=== PATIENT | male | born 2000 | race Caucasian/White ===

== ENCOUNTER 2019-12-22 23:53 | Emergency (ER) | payer SELFPAY ==
[2019-12-22 23:54] VITALS: BP 158/117; PULSE 79; RESP 18; TEMP 36.7; O2SAT 98; BMI 35.5
--- NOTE | 2019-12-23 00:04 | ED_ITS ---
HPI - Ear Problem General: Chief complaint: Ear Stated complaint: ear pain Time Seen by Provider: 12/23/19 00:04 History of Present Illness: HPI Narrative: Patient is a 19-year-old male who comes into the ED with left ear concern. Patient says 2 days ago his ear was itchy and he scratched it. Said that he cleaned his ears out with a Q-tip as well. He said that he having problems hearing out of his left ear. He describes it as being muffled. He denies any injury to the ear or any loud noise that provoked the change in hearing. He said today he started getting some ringing in his left ear as well. Denies any fever, chest pain, shortness breath, nausea, vomiting, abdominal pain, diarrhea, bladder symptoms, neuro symptoms. Associated symptoms: Reports tinnitus (left ear); Denies fever(s), headache(s) or neck pain Review of Systems Const: Denies: fever, chills or fatigue Eyes: Denies: change in vision or eye discomfort ENMT: Reports: Change in hearing (left ear) and tinnitus (left ear); Denies: throat pain, painful swallowing, nasal discharge or nasal congestion Card: Denies: chest pain, palpitations, edema, swelling of feet/ankles, shortness of breath on exertion or shortness of breath when lying down Resp: Denies: shortness of breath, productive cough or non-productive cough GI: Denies: abdominal pain, nausea, vomiting, diarrhea, constipation or blood in stool : Denies: flank pain, difficulty urinating, painful urination or blood in urine Musc: Denies: neck pain, back pain or extremity swelling Skin/Breast: Denies: rash or new lesion Neuro: Denies: headache, numbness in extremities or weakness in extremities [facility] ED PFSH: Social History Smoking and tobacco status: current every day smoker Physical Exam Narrative: EXAM NARRATIVE: Patient is a 19-year-old male who comes to the ED with left ear problem. Patient's left ear cerumen impaction so had the nurse remove the cerumen. After removal of the cerumen I was able to visualize the inner ear. Patient's left eardrum was completely ruptured. There was no discharge. Const: COMMON NORMALS: oriented x3 HENMT: COMMON NORMALS: normocephalic HEAD & SCALP: normocephalic TYMPANIC MEMBRANE: TM normal on the right, TM abnormal TM laterality: left Details: obstructed by cerumen (nurse removed it so I could better visualize TM.) and perforation (Patient's left eardrum was completely ruptured.) Details: without discharge and unable to visualize TM (Cerumen impacted left ear. I could not see the TM.) MOUTH: oral and palatal mucosa normal THROAT: posterior oropharynx normal and uvula midline Neck/C-Spine: COMMON NORMALS: supple GENERAL: Yes normal visual inspection Resp: COMMON NORMALS: normal respiratory effort, no retractions, no use of accessory muscles and clear to auscultation bilaterally AUSCULTATION: clear to auscultation bilaterally Cardio: COMMON NORMALS: regular rate, regular rhythm, S1 normal heart sound, S2 normal heart sound, no gallops, no clicks, no murmurs and peripheral pulses 2+ throughout RATE: regular rate RHYTHM: regular rhythm HEART SOUNDS: S1 normal and S2 normal PERIPHERAL PULSES: pulses 2+ throughout GI: COMMON NORMALS: normal to inspection, nondistended, normoactive bowel sounds, soft to palpation, non-tender and no masses PALPATION: Yes soft : COMMON NORMALS: Yes no CVA tenderness BLADDER/KIDNEY EXAM: Yes no CVA tenderness Back/Pelvis: COMMON NORMALS: no CVA tenderness Extremity: COMMON NORMALS: normal to inspection Neuro: COMMON NORMALS: oriented x3 and moves all extremities Skin: COMMON NORMALS: no rashes or lesions noted GENERAL SKIN EXAM: no rashes or lesions noted and dry skin Course ED course: I am having the nurse try to remove some of the cerumen to help visualize TM in left. Reevaluation(s): Reevaluation #1: After nurse removed the cerumen impactions I reevaluated the left eardrum. Patient's left eardrum was ruptured. Vital Signs: Vital signs: Vital Signs Temperature 98.0 F 12/22/19 23:54 Pulse Rate 78 12/23/19 00:59 Respiratory Rate 16 12/23/19 00:59 Blood Pressure 165/107 12/23/19 00:59 Pulse Oximetry 95 12/23/19 00:59 Discharge Plan Discharge Patient Disposition: Home, Self-Care Clinical Impression: Eardrum rupture, left Condition: Stable Prescriptions: New ofloxacin 0.3 % drops 10 drop EAR-BOTH BID 14 Days Qty: 10 RF: 0 Discharge Orders: Discharge Order (Routine); Ordered 12/23/19 Ordered By: Garcia Mccray Discharge Diet: Regular Discharge Activity: Resume usual activity Patient Instructions: Ruptured Eardrum - Adult Activity Restrictions/Additional Instructions: I am putting a referral in for you to see an ear nose and throat doctor. They should be calling you to set up an appointment in the next several days. Use the eardrops as prescribed. Avoid getting any water in you ear. Take ibuprofen or Tylenol for any pain or discomfort. Discharge Date/Time: 12/23/19 01:00 Coding Level of Care Code ED Ssis Architect for Uyen Fwlisa Exam Comprehensive
[2019-12-23 00:59] VITALS: BP 165/107; PULSE 78; RESP 16; O2SAT 95
--- NOTE | 2019-12-24 15:07 | DCPLANNER ---
Addendum entered by Angelika Bourgeois 12/24/19 15:23: Allie from ENT called manager of case management, informing manager of case management that a follow up appointment is scheduled for November at 10:30. Original Note: farm general manager had message to schedule a follow up appointment for patient with ENT. farm general manager called the ENT clinic, spoke with Rosalia, gave clinic patients information. farm general manager was told that patients information would be printed and reviewed. Clinic will call manager of case management and patient with appointment information.
--- NOTE | 2020-01-09 09:29 | DCPLANNER ---
Patient did not attend appointment scheduled with ENT.
== END 2019-12-23 01:00 | disposition home or self-care (01) ==
PROVIDERS: Emergency Provider Physician Assistant
DX: H72.92 Unspecified perforation of tympanic membrane, left ear (principal); F17.200 Nicotine dependence, unspecified, uncomplicated
CPT/HCPCS: 99281; 99282

== ENCOUNTER 2023-12-10 10:21 | Emergency (ER) | payer OTHER, SELFPAY ==
[2023-12-10 10:49] VITALS: BP 149/99; PULSE 85; RESP 12; TEMP 36.6; O2SAT 96; BMI 39.9
[2023-12-10 11:41] VITALS: BP 149/99; PULSE 88; RESP 15; O2SAT 98
[2023-12-10] MEDS: ondansetron 4 MG Tablet 8 MG PO (12:07)
[2023-12-10] MEDS: ketorolac 60 mg/2 mL INJ IM (12:08)
--- NOTE | 2023-12-10 13:05 | W.ED.HA ---
HPI - Headache General: Chief Complaint: Headache Stated Complaint: heachaches, vomiting Time Seen by Provider: 12/10/23 11:52 History of Present Illness: 23-year-old male presents emergency department with complaints of a migraine headache that has been ongoing and worsening for the previous 4 days. He states he did have an episode of nausea and vomiting last night. He states the pain is currently on the right side and center of his head and is a throbbing 6 out of 10 pain. He denies known injury or trauma. He denies neck pain or stiffness. Associated symptoms: Reports nausea and vomiting Review of Systems General: Reports: 10 or more systems reviewed and unremarkable except in HPI and below GI: Reports: nausea and vomiting Neuro: Reports: headache(s) PFS ED PFSH: Social History Smoking and tobacco/nicotine status: current every day tobacco/nicotine user Physical Exam Narrative: EXAM NARRATIVE: Constitutional: the patient appears well nourished and of normal development. Vital signs as documented. No acute distress at present. Alert and oriented-to person, place, time and situation. Head, eyes, ears, nose, mouth, throat: Normocephalic, atraumatic. Pupils-equal, round, reactive to light. No scleral icterus. Normal-appearing external ears. Normal appearing nasal turbinates, no drainage. No obvious oral lesions, posterior oropharynx without erythema or exudates. Neck: Supple, trachea is midline, no lymphadenopathy, no jugular venous distension, thyromegaly, or carotid bruits. Carotid upstrokes are brisk bilaterally. No nuchal rigidity, no difficulty or pain with flexion, extension or lateral rotation of the neck. Negative Kernig and Brudzinski Lungs: clear to auscultation to all lung ruiz. Symmetrical rise and fall of chest, no obvious signs of increased work of breathing at present. Cardiac: Regular rate and rhythm, positive S1, S2. No murmurs, rubs or gallops that I can appreciate Abdomen: Soft, non-tender to palpation, normal active bowel sounds to all quadrants. No palpable masses, no organomegaly and abdominal bruits. Extremities: 2+ pulses in the upper extremities that are equal bilaterally, 2+ pulses in the lower extremities that are equal bilaterally. Non-edematous. Moves all extremities well, sensation to all extremities are noted. Skin: Warm, dry, intact. Course Vital Signs: Vital signs: Vital Signs Temperature 97.9 F 12/10/23 13:13 Pulse Rate 88 12/10/23 13:13 Respiratory Rate 15 12/10/23 13:13 Blood Pressure 149/99 12/10/23 13:13 Pulse Oximetry 98 12/10/23 13:13 Oxygen Delivery Me thod Room Air 12/10/23 11:41 MDM - Headache Medical Decision Making Physical exam completed and documented I will provide the patient antinausea medication as well as Toradol intramuscular for his migraine. I have reviewed the patient's previous medical records and will discharge the patient home with PCP follow-up. Medical Records I reviewed the patient's medical records. No radiology studies performed this visit Discharge Plan Discharge Patient Disposition: Home Clinical Impression: Migraine Condition: Stable Prescriptions: New ondansetron HCl 4 mg tablet 4 mg PO Q12H 5 Days Qty: 10 0RF naproxen 500 mg tablet 500 mg PO Q12H PRN (Reason: pain) Qty: 20 0RF No Action prednisone 20 mg tablet 20 mg PO BID 5 Days Qty: 10 0RF Discharge Orders: Discharge ED (Routine); Ordered 12/10/23 Ordered By: Hadley Bueno Referrals: Demetrius Esteban MD [Primary Care Provider] - Discharge Diet: Usual diet Discharge Activity: Resume usual activity Patient Instructions: Opioid Safety, Pain Management Activity Restrictions/Additional Instructions: Activity Restrictions/Additional Instructions: Thank you for choosing [facility] for your healthcare needs today. Please realize that you were seen in the Emergency Department and that we are providing you with an emergency medical screening exam and this may not be a complete and all inclusive of all the testing and or medical work-up that you may need to determine your ailment or severity of your illness. It is very important that you follow-up as instructed with your Primary care provider or Specialist for additional evaluation and to discuss your medical treatment plan. You may return to the Emergency Department should you have concerns or if your condition changes or worsens in any way. Stand Alone Forms: Work/School Release Coding Level of Care Code ED Loan Administrator for Uyen Arellano
[2023-12-10 13:13] VITALS: BP 149/99; PULSE 88; RESP 15; TEMP 36.6; O2SAT 98
== END 2023-12-10 13:14 | disposition home or self-care (01) ==
PROVIDERS: Emergency Provider Internal Medicine; PCP Family Medicine
DX: G43.909 Migraine, unspecified, not intractable, without status migrainosus (principal); Z72.0 Tobacco use
CPT/HCPCS: 96372; 99284; J1885; Q0162

== ENCOUNTER 2023-12-20 08:57 | Emergency (ER) | payer OTHER, SELFPAY ==
[2023-12-20 09:09] VITALS: BP 141/84; PULSE 95; RESP 16; TEMP 36.6; O2SAT 97; BMI 38.2
[2023-12-20] MEDS: fluorescein 1 mg Strip EYE-LEFT (10:10)
[2023-12-20] MEDS: tetracaine 0.5% Op Soln 4 mL Btl 1 DROP EYE-LEFT (10:11)
--- NOTE | 2023-12-20 11:25 | W.ED.EYEPROB ---
HPI - Eye Problem General: Chief complaint: Eye Problems Stated complaint: left eye pain Time Seen by Provider: 12/20/23 09:06 Source: patient Mode of arrival: ambulatory History of Present Illness: 23-year-old male presents emergency room he was scratched in his left eye while playing with his daughter last night has some pain and redness discomfort photophobia. No previous injury to that eye in the past. He has not had any foreign bodies MD chief complaint: eye pain and eye redness Onset (ago): hour(s) Onset description: sudden Duration: constant Location: left eye Eye Symptoms: redness and pain Place: home Mechanism: direct trauma Associated symptoms: Denies cough, fever(s), headache(s), numbness, rhinorrhea, short of breath, weakness or other Review of Systems Const: Denies: fever(s) or chills Eyes: Reports: photophobia, eye discomfort and eye redness Card: Denies: chest pain Resp: Denies: dyspnea GI: Denies: abdominal pain Skin/Breast: Denies: rash Neuro: Denies: headache(s) PFSH ED PFSH: Social History Smoking and tobacco/nicotine status: current every day tobacco/nicotine user Physical Exam Const: GENERAL APPEARANCE: cooperative and comfortable ORIENTATION/CONSCIOUSNESS: Yes awake, Yes oriented to person, Yes oriented to place and Yes oriented to time HENMT: COMMON NORMALS: normocephalic, atraumatic and hearing grossly normal bilaterally HEAD & SCALP: normocephalic and atraumatic OTHER: Gross examination anteversion eyelids no foreign bodies and no foreign bodies grossly noted in the cornea under magnification. Tetracaine dye applied and then fluorescein there is a small abrasion at the 3 o'clock position peripherally that appears to be partially healed. Neuro: SENSORIUM/ORIENTATION: Yes oriented to person, Yes oriented to place and Yes oriented to time Skin: COMMON NORMALS: no rashes or lesions noted GENERAL SKIN EXAM: no rashes or lesions noted Course Vital Signs: Vital signs: Vital Signs Temperature 97.9 F 12/20/23 09:09 Pulse Rate 95 12/20/23 09:09 Respiratory Rate 16 12/20/23 09:09 Blood Pressure 141/84 12/20/23 09:09 Pulse Oximetry 97 12/20/23 09:09 Oxygen Delivery Me thod Room Air 12/20/23 09:09 MDM - Eye Problem Medical Decision Making TobraDex drops 1 drop every 2 hours while awake for the next 48 hours. Follow-up with ophthalmology or optometry if not improving Medical Records I reviewed the patient's medical records. No radiology studies performed this visit Discharge Plan Discharge Patient Disposition: Home Clinical Impression: Corneal abrasion Condition: Stable Prescriptions: New Tobradex ST 0.3-0.05 % drops,suspension 1 drp ophthalmic (eye) Q2H 2 Days Qty: 5 0RF No Action prednisone 20 mg tablet 20 mg PO BID 5 Days Qty: 10 0RF naproxen 500 mg tablet 500 mg PO Q12H PRN (Reason: pain) Qty: 20 0RF Discharge Orders: Discharge ED (Routine); Ordered 12/20/23 Ordered By: Jose Finch Referrals: Demetrius Esteban MD [Primary Care Provider] - Patient Instructions: Corneal Abrasion (ED), Opioid Safety, Pain Management Activity Restrictions/Additional Instructions: Thank you for choosing [facility] for your healthcare needs today. Please realize this is an emergency room and that we are providing you with a medical screening exam and this may not be complete and all inclusive of all the testing and or work up that you may need to determine your ailment or severity of your illness. It is very important that you follow up as instructed or that you return to the Emergency Department should you have concerns or if your condition changes or worsens in any way. Stand Alone Forms: Work/School Release Coding Level of Care Code ED Poured Pipe Maker for Uyen Arellano
== END 2023-12-20 10:11 | disposition home or self-care (01) ==
PROVIDERS: Emergency Provider Family Medicine; PCP Family Medicine
DX: S05.02XA Injury of conjunctiva and corneal abrasion without foreign body, left eye, initial encounter (principal); X58.XXXA Exposure to other specified factors, initial encounter; Z72.0 Tobacco use
CPT/HCPCS: 99283

== ENCOUNTER 2024-05-24 16:39 | Emergency (ER) | payer OTHER, SELFPAY ==
[2024-05-24 16:48] VITALS: BP 139/98; PULSE 65; RESP 18; TEMP 36.8; O2SAT 98
--- NOTE | 2024-05-24 17:20 | W.ED.EXTPRO ---
HPI - Extremity Problem General: Chief complaint: Extremity Problem,Nontraumatic Stated complaint: ingrown toe nails Time Seen by Provider: 05/24/24 17:07 Source: patient Mode of arrival: ambulatory Limitations: no limitations History of Present Illness: Patient is a 23-year-old male who presents emergency department complaining of left great toe pain due to ingrown toenail. States he has had issues with this his whole life, and has to frequently have his toenails clipped for him in the emergency department. He states that it has been draining. Denies any fever, nausea, vomiting, or other systemic signs of illness. He states he has been cutting the toenail himself to relieve pressure from the size of his toe. No other symptoms reported at this time. MD Complaint: extremity pain (Left great toe) Pain Consistency: constant Location: left and toe Radiation: none Exacerbating factors: weight bearing Associated symptoms: Deny chest pain, fever(s) or rash Review of Systems General: Reports: 10 or more systems reviewed and unremarkable except in HPI and below Const: Denies: fever(s) or chills Card: Denies: chest pain Resp: Denies: dyspnea or productive cough GI: Denies: abdominal pain, nausea, vomiting or diarrhea : Denies: flank pain Musc: Reports: extremity pain (Left great toe) and extremity swelling (Left great toe); Denies: neck pain, back pain, joint pain, joint swelling, joint redness, joint warmth, limited range of motion or muscle weakness Skin/Breast: Denies: rash Neuro: Denies: headache(s), numbness in extremities or weakness in extremities [facility] ED PFSH: Social History Smoking and tobacco/nicotine status: current every day tobacco/nicotine user Physical Exam Const: COMMON NORMALS: no acute distress, patient oriented x3, no limitations, healthy appearing, alert and well nourished HENMT: COMMON NORMALS: normocephalic and atraumatic HEAD & SCALP: normocephalic and atraumatic Neck/C-Spine: COMMON NORMALS: full ROM, supple and no meningeal signs Resp: COMMON NORMALS: normal respiratory effort, No use of accessory muscles and clear to auscultation bilaterally AUSCULTATION: clear to auscultation bilaterally Cardio: COMMON NORMALS: regular rate and regular rhythm RATE: regular rate RHYTHM: regular rhythm Extremity: COMMON NORMALS: full ROM, capillary refill normal, no joint enlargement and no clubbing, cyanosis or edema NARRATIVE EXTREMITY EXAM: Paronychia to patient's left great toe present, looks to have been draining recently. No palpable fluctuance. The nail appears without complication. Neuro: COMMON NORMALS: patient oriented x3, moves all extremities, no focal motor deficits and no sensory deficits noted SENSORIUM/ORIENTATION: Yes alert MENINGEAL SIGNS: Yes no meningeal signs Skin: COMMON NORMALS: no rashes or lesions noted GENERAL SKIN EXAM: no rashes or lesions noted Course Vital Signs: Vital signs: Vital Signs Temperature 98.3 F 05/24/24 16:48 Pulse Rate 65 05/24/24 16:48 Respiratory Rate 18 05/24/24 16:48 Blood Pressure 139/98 05/24/24 16:48 Pulse Oximetry 98 05/24/24 16:48 Oxygen Delivery Me thod Room Air 05/24/24 16:48 MDM - Extremity (Nontraumatic) Medical Decision Making Patient presented for evaluation of a paronychia, reported to be chronic and he has had toenails cut in the past. He did recently cut the toenail to avoid pressure, and it does not appear to be any ingrowing at this time. However there is a paronychia present, though no fluctuance palpated and is reported to be actively draining. Will start on antibiotics at the patient's request, and he is informed to establish with a primary care provider for further management of this, and is also instructed to do warm water soaks. No radiology studies performed this visit Discharge Plan Discharge Patient Disposition: Home Clinical Impression: Paronychia Condition: Stable Prescriptions: New Bactrim DS 800-160 mg tablet 1 tab PO BID 7 Days Qty: 14 0RF No Action prednisone 20 mg tablet 20 mg PO BID 5 Days Qty: 10 0RF naproxen 500 mg tablet 500 mg PO Q12H PRN (Reason: pain) Qty: 20 0RF Discharge Orders: Discharge ED (Routine); Ordered 05/24/24 Ordered By: Damon Dahl Referrals: Demetrius Esteban MD [Primary Care Provider] - Discharge Diet: Usual diet Discharge Activity: Increase activity as tolerated Patient Instructions: Paronychia (ED) Activity Restrictions/Additional Instructions: Take Bactrim as prescribed. Warm water soaks. Please follow-up with primary care provider for any further incidences of ingrown toenails. Return with any new or worsening symptoms. Coding Level of Care Code ED [employer] Learning Support Teacher for Uyen Arellano
[2024-05-24 17:29] VITALS: BP 139/98; PULSE 65; RESP 18; O2SAT 98
== END 2024-05-24 17:31 | disposition home or self-care (01) ==
PROVIDERS: Emergency Provider Physician Assistant; PCP Family Medicine
DX: L03.032 Cellulitis of left toe (principal); Z72.0 Tobacco use
CPT/HCPCS: 99283

== ENCOUNTER 2025-06-06 17:18 | Emergency (ER) | payer SELFPAY ==
[2025-06-06 17:26] VITALS: BP 158/89; PULSE 57; RESP 16; TEMP 36.7; O2SAT 98; BMI 34.9
--- NOTE | 2025-06-06 17:44 | ED_ITS ---
HPI - Dental/Oral General: Chief complaint: Dental/Oral Stated complaint: L side tooth pain bottom Time Seen by Provider: 06/06/25 17:23 Source: patient Mode of arrival: ambulatory Limitations: no limitations History of Present Illness: Patient is a 24-year-old male presents the emergency department complaining of left upper dental pain for the last week. States a week ago he was eating and a piece of his tooth chipped off, states that the pain is steadily worsened since. He does not see a dentist as he does not have insurance. States that the pain is so severe that he took six 500 mg tablets of ibuprofen before coming in. No fever, but states that the pain is radiating into his face. No other symptoms. MD Complaint: tooth pain Onset (ago): week(s) (1) Duration: constant Severity: severe Associated symptoms: Denies ear or mastoid pain or fever(s) Related Data Previous Rx's ?Medication ?Instructions ?Recorded prednisone 20 mg tablet 20 mg PO BID 5 days #10 tabs 07/26/23 naproxen 500 mg tablet 500 mg PO Q12H PRN pain #20 tabs 12/10/23 clarithromycin 500 mg tablet 500 mg PO BID 5 days #10 tabs 06/06/25 Allergies Allergy/AdvReac Type Severity Reaction Status Date / Time Penicillins Allergy Unknown Verified 05/24/24 16:51 Review of Systems General: Reports: 10 or more systems reviewed and unremarkable except in HPI and below Const: Denies: fever(s), chills or fatigue Eyes: Denies: change in vision ENMT: Reports: dental pain and sinus pain; Denies: throat pain, ear or mastoid pain or nasal discharge Card: Denies: chest pain, palpitations, swelling of feet/ankles or lightheadedness Resp: Denies: dyspnea, productive cough or wheezing GI: Denies: abdominal pain, nausea, vomiting, diarrhea or constipation : Denies: flank pain, difficulty urinating, dysuria or urinary frequency Musc: Denies: neck pain, back pain or joint pain Skin/Breast: Denies: rash Neuro: Denies: headache(s), numbness in extremities or weakness in extremities PFSH ED PFSH: Social History Smoking and tobacco/nicotine status: current every day tobacco/nicotine user Physical Exam Const: COMMON NORMALS: no acute distress and no limitations GENERAL APPEARANCE: cooperative, comfortable and well developed ORIENTATION/CONSCIOUSNESS: Yes awake HENMT: COMMON NORMALS: normocephalic, atraumatic, hearing grossly normal bilaterally, moist oral mucous membranes and oropharynx normal HEAD & SCALP: normocephalic and atraumatic OTHER: Tenderness to left maxillofacial region. No swelling. Dental exam positive for fracture of left upper molar. There is gingival edema and tenderness to palpation. Neck/C-Spine: COMMON NORMALS: full ROM and supple Extremity: COMMON NORMALS: normal to inspection, full ROM and capillary refill normal Skin: COMMON NORMALS: no rashes or lesions noted GENERAL SKIN EXAM: no rashes or lesions noted Course Vital Signs: Vital signs: Vital Signs Temperature 98.0 F 06/06/25 17:26 Pulse Rate 57 L 06/06/25 17:26 Respiratory Rate 16 06/06/25 17:26 Blood Pressure 158/89 06/06/25 17:26 Pulse Oximetry 98 06/06/25 17:26 Oxygen Delivery Me thod Room Air 06/06/25 17:26 MDM - Dental/Oral Medical Decision Making Patient presenting with fracture of the tooth, and facial pain status post fracture of tooth. With symptoms spreading will treat for dental abscess, he is also given instructions for follow-up with a dentist to have the tooth worked on. Clindamycin started, he is given pain medication for home and Decadron shot here in the ED. Also is counseled on proper use of ibuprofen and proper dosages as there was concern for misuse. No radiology studies performed this visit Discharge Plan Discharge Patient Disposition: Home Clinical Impression: Dental abscess, Fracture of tooth Condition: Stable Prescriptions: New clarithromycin 500 mg tablet 500 mg PO BID 5 Days Qty: 10 0RF No Action prednisone 20 mg tablet 20 mg PO BID 5 Days Qty: 10 0RF naproxen 500 mg tablet 500 mg PO Q12H PRN (Reason: pain) Qty: 20 0RF Discharge Orders: Discharge ED (Routine); Ordered 06/06/25 Ordered By: Damon Dahl Referrals: Demetrius Esteban MD [Primary Care Provider, Family Practice] Patient Instructions: Opioid Safety, Patient Portal & Rosalio Instructions Activity Restrictions/Additional Instructions: Dental abscess care Please read these instructions carefully. These steps can help control pain and swelling at home and explain how to take the medicines safely while arranging urgent dental follow-up to fix the tooth causing the infection. - The most important step: arrange dental treatment to remove the source of infection (likely removal of the fractured tooth). A dental procedure is what cures a dental abscess. Pain medicines and antibiotics are temporary measures until the tooth is treated. Antibiotic (infection medicine) - Clarithromycin 500 mg: take 1 tablet by mouth every 12 hours for 5 days, with food if stomach upset occurs. - Stop early if directed: If swelling, fever, and mouth symptoms completely resolve, it is reasonable to stop the antibiotic 24 hours after all symptoms have resolved, even if that is before day 5. If symptoms are not improving by 48?72 hours, or worsen at any time (increasing facial swelling, fever, trouble swallowing, or feeling very ill), call for reassessment right away. - Do not share or save leftover antibiotics. Dispose of leftovers per local guidance. - Possible side effects: stomach upset, diarrhea, rash. Seek care for severe diarrhea (>= loose stools/day with cramps or fever), hives, trouble breathing, or severe rash. Pain control plan (use the lowest effective doses) Evidence shows non-opioid pain relievers work best for dental pain. Expect some pain; the goal is manageable pain. 1) First-line medicines - Ibuprofen (Advil, Motrin): 400 mg every 6?8 hours as needed. - Acetaminophen (Tylenol): 500?1,000 mg every 6?8 hours as needed. - It is safe and often more effective to take them together, for example: - Ibuprofen 400 mg + Acetaminophen 500?1,000 mg at the same time, up to 3?4 times per day. 2) Daily maximums and safety limits - Do not exceed: ibuprofen 2,400 mg in 24 hours; acetaminophen 4,000 mg in 24 hours (lower if liver disease or heavy alcohol use; if unsure, keep acetaminophen <=,000 mg/day). - Avoid ibuprofen if there is a history of stomach ulcers/bleeding, severe kidney disease, certain heart conditions, or if unless specifically advised. - Many cold/flu and ?PM? products contain acetaminophen. Check labels to avoid accidental overdose. Acetaminophen overdose can cause serious liver damage. 3) Opioid for breakthrough pain (use only if needed) - Oxycodone: A small number of tablets have been provided for severe ?breakthrough? pain that is not controlled after trying ibuprofen and acetaminophen as above. - Take the lowest dose, as few tablets as possible, and only for the shortest time (rarely needed beyond 1?[address]). [address], drink alcohol, or combine with sedatives (e.g., benzodiazepines). Store locked and out of reach of others. Dispose of unused tablets at a take-back site. - Opioids can cause drowsiness, constipation, nausea, and, in rare cases, slowed or difficult breathing. If excessive sleepiness, slowed breathing, or confusion occurs, seek emergency care. Mouth care at home - Rinse gently with warm salt water (? teaspoon salt in a cup of warm water) 3?4 times daily to help with comfort and drainage. - Soft diet on the affected side; avoid very hot, cold, or sugary foods that can worsen pain. - Do not apply heat to the face (may increase swelling). Use cool compresses on the cheek for 10?15 minutes at a time for comfort. - Keep well hydrated and rest. Dental follow-up - An abscess usually will not fully resolve until the problem tooth is treated. Follow the provided resources to schedule dental care as soon as possible for definitive treatment (likely extraction of the fractured tooth). - If an appointment cannot be obtained within 48?72 hours, or pain is not improving with the plan above, call for guidance. When to seek urgent care - Increasing facial swelling, fever, chills, feeling very ill, trouble sw allowing, drooling, stiff neck, worsening jaw or [id number] swelling, or trouble breathing. - Severe dehydration (not drinking/urinating), confusion, or severe medication side effects (allergic reaction, severe diarrhea). Medication schedule example (adjust to needs; do not exceed maximums) - Morning: Ibuprofen 400 mg + Acetaminophen 1,000 mg together - Midday (6?8 hours later): Ibuprofen 400 mg - Evening: Ibuprofen 400 mg + Acetaminophen 1,000 mg together - Bedtime (if needed): Acetaminophen 500?1,000 mg - If severe breakthrough pain persists despite the above, use 1 oxycodone tablet as directed, then resume the non-opioid schedule. Use the fewest oxycodone tablets needed; avoid [id number] opioid use. Stewardship and monitoring - Non-opioid medicines are first-line and often outperform opioids for dental pain, with fewer side effects. - Antibiotics are adjuncts when needed; they do not replace dental treatment. Recheck symptoms at 48?72 hours; stop antibiotics 24 hours after complete resolution of systemic/dental symptoms, and arrange definitive dental care. Print Language: Namibian Coding Level of Care Code ED General Partner for Uyen Arellano
[2025-06-06] MEDS: oxyCODONE-APAP 5-325 mg Tablet 2 TAB PO (17:50)
== END 2025-06-06 17:56 | disposition home or self-care (01) ==
PROVIDERS: Emergency Provider Physician Assistant; PCP Family Medicine
DX: K04.7 Periapical abscess without sinus (principal); S02.5XXA Fracture of tooth (traumatic), initial encounter for closed fracture; X58.XXXA Exposure to other specified factors, initial encounter; Z72.0 Tobacco use
CPT/HCPCS: 96372; 99284; J1100; J9999

== ENCOUNTER 2025-09-27 22:15 | Emergency (ER) | payer SELFPAY ==
[2025-09-27 22:21] VITALS: BP 159/98; PULSE 85; RESP 16; TEMP 36.8; O2SAT 97; BMI 35.5
--- NOTE | 2025-09-27 22:56 | W.ED.DENTAL ---
HPI - Dental/Oral General: Chief complaint: Dental/Oral Stated complaint: left side dental pain swollen Time Seen by Provider: 09/27/25 22:34 History of Present Illness: Patient is a 25-year-old gentleman presents to the emergency room with left upper jaw pain. This started in the last 1 week. This is worsening in nature. He has a area open in his right upper first molar. Patient had this the last 6 months, was here 4 months ago, and was unable to follow-up with dental services due to money. He has not had trouble until now. No fevers. He is able to open his mouth fully. No redness to his jaw. No pustulant drainage. No issues with swallowing. Associated symptoms: Denies ear or mastoid pain or fever(s) Related Data Previous Rx's ?Medication ?Instructions ?Recorded prednisone 20 mg tablet 20 mg PO BID 5 days #10 tabs 07/26/23 naproxen 500 mg tablet 500 mg PO Q12H PRN pain #20 tabs 12/10/23 clindamycin HCl 300 mg capsule 300 mg PO Q8H 10 days #30 caps 09/27/25 (Cleocin HCl) diclofenac sodium 75 mg 75 mg PO BID PRN pain #30 tabs 09/27/25 tablet,delayed release Allergies Allergy/AdvReac Type Severity Reaction Status Date / Time Penicillins Allergy Unknown Verified 09/27/25 22:24 Review of Systems General: Reports: 10 or more systems reviewed and unremarkable except in HPI and below Const: Denies: fever(s), chills or fatigue Eyes: Denies: change in vision ENMT: Reports: dental pain and sinus pain; Denies: throat pain, ear or mastoid pain or nasal discharge Card: Denies: chest pain, palpitations, swelling of feet/ankles or lightheadedness Resp: Denies: dyspnea, productive cough or wheezing GI: Denies: abdominal pain, nausea, vomiting, diarrhea or constipation : Denies: flank pain, difficulty urinating, dysuria or urinary frequency Musc: Denies: neck pain, back pain or joint pain Skin/Breast: Denies: rash or pruritus Neuro: Denies: headache(s), numbness in extremities or weakness in extremities Psych: Denies: anxiety or depression PFSH ED PFSH: Social History Smoking and tobacco/nicotine status: current every day tobacco/nicotine user Physical Exam Const: COMMON NORMALS: no acute distress, patient oriented x3 and no limitations GENERAL APPEARANCE: cooperative, comfortable and well developed ORIENTATION/CONSCIOUSNESS: Yes awake HENMT: COMMON NORMALS: normocephalic, atraumatic, hearing grossly normal bilaterally, moist oral mucous membranes and oropharynx normal HEAD & SCALP: normocephalic and atraumatic TEETH & GINGIVA IMAGES:  1. Dental cavitation Neck/C-Spine: COMMON NORMALS: full ROM and supple Lymph: LYMPHATIC: no lymphadenopathy noted Chest: COMMONS NORMALS: normal inspection of the chest and normal palpation of entire chest wall Resp: COMMON NORMALS: normal respiratory effort, No retractions and clear to auscultation bilaterally AUSCULTATION: clear to auscultation bilaterally Cardio: COMMON NORMALS: regular rate and regular rhythm RATE: regular rate RHYTHM: regular rhythm GI: COMMON NORMALS: Normal to inspection, nondistended, normoactive bowel sounds present, Soft to palpation, non-tender and No hepatosplenomegaly present PALPATION: Yes Soft to palpation and Yes No hepatosplenomegaly present : COMMON NORMALS: Yes no CVA tenderness BLADDER/KIDNEY EXAM: Yes no CVA tenderness Back/Pelvis: COMMON NORMALS: no CVA tenderness and thoracic and lumbar spine normal to inspection Extremity: COMMON NORMALS: normal to inspection, full ROM and capillary refill normal Neuro: COMMON NORMALS: patient oriented x3, CN's II-XII intact bilaterally and moves all extremities Skin: COMMON NORMALS: no rashes or lesions noted GENERAL SKIN EXAM: no rashes or lesions noted Course Vital Signs: Vital signs: Vital Signs Temperature 98.3 F 09/27/25 22:21 Pulse Rate 85 09/27/25 22:21 Respiratory Rate 16 09/27/25 22:21 Blood Pressure 159/98 09/27/25 22:21 Pulse Oximetry 97 09/27/25 22:21 Oxygen Delivery Me thod Room Air 09/27/25 22:21 [facility] - Dental/Oral Medical Decision Making Patient is a 25-year-old gentleman that presents with dental pain. He has tried multiple modalities, ibuprofen, Tylenol, and Aleve, and continues to still have left upper jaw pain. He is checking into a structured scale regarding dental care. I have also told him about [facility] with a sliding scale. He is utilizing oral gel. I have discussed [place] with him a cover for his tooth to help with the pain. Clindamycin was sent to the pharmacy. Diclofenac to take the place of his anti-inflammatory. He will take off work until Monday, in order to have his dental appointment on Monday morning. Girlfriend is next to him, and has taken all information down No radiology studies performed this visit Discharge Plan Discharge Patient Disposition: Home Clinical Impression: Dental caries Condition: Stable Prescriptions: New clindamycin HCl [Cleocin HCl] 300 mg capsule 300 mg PO Q8H 10 Days Qty: 30 0RF diclofenac sodium 75 mg tablet,delayed release (DR/EC) 75 mg PO BID PRN (Reason: pain) Qty: 30 0RF No Action prednisone 20 mg tablet 20 mg PO BID 5 Days Qty: 10 0RF naproxen 500 mg tablet 500 mg PO Q12H PRN (Reason: pain) Qty: 20 0RF Discharge Orders: Discharge ED (Routine); Ordered 09/27/25 Ordered By: Marlene Tenorio Referrals: Demetrius Esteban MD [Primary Care Provider, Family Practice] Patient Instructions: Dental Caries (Cavities), Opioid Safety, Pain Management, Patient Portal & Rosalio Instructions Activity Restrictions/Additional Instructions: - Ice your jaw for pain relief - At the pharmacy: Clindamycin, diclofenac. Clindamycin is your antibiotic, diclofenac is a powerful anti-inflammatory. Take this instead of Aleve, aspirin, ibuprofen. - Call on Monday for your doctor's appointment. Stand Alone Forms: Work/School Release Print Language: Ukrainian Coding Level of Care Code ED Regulator Pin Inserter for Uyen Arellano
[2025-09-27] MEDS: HYDROcodone-acetaminophen 10-325 mg Tablet 1 TAB PO (23:07)
[2025-09-27 23:09] VITALS: BP 154/105; PULSE 97; O2SAT 97
== END 2025-09-27 23:15 | disposition home or self-care (01) ==
PROVIDERS: Emergency Provider Physician Assistant; PCP Family Medicine
DX: K02.9 Dental caries, unspecified (principal); Z72.0 Tobacco use
CPT/HCPCS: 99283; J9999